=== PATIENT | female | born 1975 | race Caucasian/White ===

== ENCOUNTER 2018-04-16 11:30 | Day surgery (SDC) | payer OTHER ==
[2018-04-16] MEDS ORDERED: Midazolam 2 MG/2 ML VIAL ONE (13:09)
[2018-04-16] MEDS ORDERED: Propofol 10 mg/ml Inj (20 ML) ONE (13:09)
[2018-04-16] MEDS ORDERED: ceFAZolin 1 gm in NS 1 GM/100 ML BAG IVPB ONE (13:19)
[2018-04-16] MEDS ORDERED: Bupivacaine-Epi 0.5%-1:200,000 PF Inj ONE (13:20)
[2018-04-16] MEDS ORDERED: Rocuronium 10 mg/ml (5 ml) ONE (13:44)
--- NOTE | 2018-04-16 14:58 | PCM.SURG1 ---
Surgeon's Initial Post Op Note - Surgeon's Notes Surgeon: Dr. Gill Test Equipment Mechanic: Dr. Elder PGY-4 Type of Anesthesia: General Endo, Local Pre-Operative Diagnosis: Prolapsed hemorrhoid Operative Findings: anterior elongated external hemorrhoid and prolapsed internal hemorrhoids Post-Operative Diagnosis: Prolapsed hemorrhoid Operation Performed: Procedure for prolapsed hemorrhoid (PPH) and anterior hemorrhoidectomy x1 Specimen/Specimens Removed: hemorrhoid Estimated Blood Loss: EBL {In ML}: 10 Blood Products Given: N/A Drains Used: No Drains Post-Op Condition: Good Date of Surgery/Procedure: 04/16/18 Time of Surgery/Procedure: 14:57
[2018-04-16] MEDS ORDERED: HYDROmorphone 0.5 mg/0.5 ml ISec IVP PRN ×2 (15:04→16:03)
[2018-04-16 15:09] VITALS: O2SAT 100
[2018-04-16 17:13] VITALS: BP 104/68; PULSE 70; RESP 18; TEMP 98
--- NOTE | 2018-04-24 02:10 | OP ---
PROCEDURE DATE: 04/16/2018 PREOPERATIVE DIAGNOSIS: Prolapsed hemorrhoid. POSTOPERATIVE DIAGNOSIS: Prolapsed hemorrhoid as well as external hemorrhoid. PROCEDURE: Procedure for prolapsed hemorrhoid (PPH) and anterior hemorrhoidectomy x1. SURGEON: Crys Gill MD [employer]: Niesha Elder DO, PGY-4. ANESTHESIA: General endotracheal and local. ESTIMATED BLOOD LOSS: 10 mL. DRAINS: None. COMPLICATIONS: None. DESCRIPTION OF PROCEDURE: The patient was brought to the operating room and general endotracheal anesthesia was administered. The patient was then placed in a prone jackknife position and surgical site was prepped and draped in the usual sterile fashion. The perineal and rectal areas were examined. The patient was found to have prolapsing internal hemorrhoids and a single external hemorrhoid that was elongated. It was decided to excise that external hemorrhoid separately to avoid the skin being incorporated into the PPH. That was partially closed with 2-0 Chromic suture and the hemorrhoidal stapling kit was opened and the clear plastic retractor and obturator were placed in the anal canal. The obturator was removed. The circular retractor was secured to the perineum using 3-0 silk suture. The dentate line was identified and retracted by the retractor. The fenestrated anoscope was placed through the retractor. Approximately 4 cm above the dentate line, a 2-0 Prolene pursestring suture was placed. Next, a stapling gun was fully opened and the anvil was placed above the pursestring suture. The pursestring suture was tied taut around the shaft of the stapler. The two ends of the suture were brought to the eyelet of the stapler device using the kiran hook provided and tied again. With retraction on the pursestring, the stapling gun was closed until the green indicator was present in the center of the window markings. The stapler gun was fired and kept in position for 60 seconds. The device was then removed. The staple line was examined for hemostasis. After hemostasis was achieved, a piece of Vaseline gauze was placed in the rectum. The patient tolerated the procedure well and was brought to PACU in stable condition. Niesha Elder DO Crys Gill MD
== END 2018-04-16 17:59 | disposition home or self-care (01) ==
LOC: C.SDS 11:30
PROVIDERS: ATTEND Specialist
DX: K64.8 Other hemorrhoids (principal); K64.4 Residual hemorrhoidal skin tags; F17.210 Nicotine dependence, cigarettes, uncomplicated
CPT/HCPCS: 46260; 88304; J0690; J1170; J2001; J2250; J2405; J2704; J3010